=== PATIENT | male | born 1960 | race Caucasian/White ===

== ENCOUNTER 2021-10-06 18:30 | Emergency (ER) | payer BC, MEDICARE ==
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
[2021-10-06 20:09] VITALS: BP 181/99
[2021-10-06] MEDS ORDERED: TORAdol 30 mg Injection IM ONE (20:23)
[2021-10-06] MEDS ORDERED: Norflex 60 MG/2 ML IM ONE (20:24)
[2021-10-06] MEDS ORDERED: TORAdol 30 mg Injection ONE (20:47)
[2021-10-06] MEDS ORDERED: Norflex 60 MG/2 ML ONE (20:47)
[2021-10-06 21:09] VITALS: PULSE 70; O2SAT 96
--- NOTE | 2021-10-07 07:30 | XRAY ---
Indication: Head, neck, and left arm pain/numbness. Multiple contiguous axial images obtained through the head without contrast. Comparison: None Age-appropriate global atrophy. No acute intracranial hemorrhage, abnormal extra-axial fluid collection, or mass effect. Fourth ventricle is midline without hydrocephalus. Bony calvarium intact. Paranasal sinuses and mastoid air cells are clear. Impression: Negative CT head without contrast exam. Comment: Preliminary interpretation made by [facility]. No critical discrepancy.
--- NOTE | 2021-10-07 07:32 | XRAY ---
Indication: Head, neck, and left arm pain/numbness. Multiple contiguous axial images obtained through the cervical spine. Sagittal and coronal reformatted images obtained. Comparison: None Axial images negative for acute fracture, suspicious bone lesions, or spinal canal stenosis. Mild C5-C7 degenerative endplate spurring and mild multilevel bilateral degenerative facet hypertrophy left greater than right. Sagittal and coronal reformatted images demonstrates lordotic straightening, positional versus paraspinal spasm. C5-C7 disc space narrowing. No acute compression fracture, subluxation, or jump facet. Normal appearing craniocervical junction. Visualized noncontrasted soft tissues demonstrates minimal bilateral carotid calcifications. Lung apices are clear. Impression: 1. Cervical lordotic straightening, positional versus paraspinal spasm. 2. Negative acute fracture/subluxation. 3. Incidental C5-C7 degenerative changes. Comment: Preliminary interpretation made by C. No critical discrepancy.
== END 2021-10-06 21:00 | disposition home or self-care (01) ==
LOC: ED 18:30
DX: M50.30 Other cervical disc degeneration, unspecified cervical region (principal); R51.9 Headache, unspecified; E78.5 Hyperlipidemia, unspecified; I10 Essential (primary) hypertension; E11.9 Type 2 diabetes mellitus without complications; Z72.0 Tobacco use; Z79.84 Long term (current) use of oral hypoglycemic drugs; Z79.899 Other long term (current) drug therapy
CPT/HCPCS: 70450; 72125; 96372; 99284; J1885; J2360

== ENCOUNTER 2024-02-29 13:25 | Emergency (ER) | payer MEDICARE ==
[2024-02-29 13:40] VITALS: TEMP 97.7
--- NOTE | 2024-02-29 14:47 | ERPHSYRPT ---
- History of Present Illness Time Seen by Provider: 02/29/24 14:35 Historian: patient Patient Subjective Stated Complaint: "Tianna had a wierd kind of pain in my chest since yesterday" Triage Nursing Assessment: C/o "wierd" pain in center of chest since yesterday. H/o CABG 15 years ago. States some sweating on occastion. Pain worsens when moving. No N/V. No tx prior to coming here today. Increased sob with exertion. AAox3, Walked in. Brought here by a friend. Physician History: For the past 14.5 hours pt has had constant mid chest burning 6/10 in severity with right shoulder pain and diaphoresis; denies abdominal pain, nausea, vomiti ng, fever. Aspirin Treatment Today: 81 mg x 4, provided by ED Allergies/Adverse Reactions: No Known Drug Allergies Allergy (Unverified 10/06/21 18:38) Home Medications: Acetaminophen with Codeine [Tylenol with Codeine #4 Tablet] 1 each PO Q6H PRN PRN 10/18/16 [History] Alendronate Sodium 70 mg [Fosamax 70 MG] 70 mg PO WEEKLY 10/18/16 [History] Amlodipine Besylate 5 mg [Norvasc 5 mg] 5 mg PO DAILY 10/18/16 [History] Atorvastatin Calcium [Lipitor 40Mg] 40 mg PO HS 10/18/16 [History] Betamethasone/Propylene Glyc [Diprolene AF 0.05% Cream] 15 gm TP BID 10/18/16 [History] Buspirone HCl [Buspar] 10 mg PO BID 10/18/16 [History] Gabapentin [Neurontin] 800 mg PO TID 10/18/16 [History] Irbesartan/Hydrochlorothiazide [Avalide 150-12.5 mg Tablet] 1 each PO DAILY 10/18/16 [History] Liraglutide [Victoza 2-Tru] 1.2 mg SQ HS 10/18/16 [History] Metformin HCl [Glucophage] 1,000 mg PO BID 10/18/16 [History] Metoprolol Succinate 100 mg [Toprol Xl 100 MG] 100 mg PO DAILY 10/18/16 [History] Metoprolol Succinate 100 mg [Toprol Xl 100 MG] 100 mg PO DAILY 10/18/16 [History] Milnacipran HCl [Savella] 50 mg PO BID 10/18/16 [History] Multivitamin [Multivitamins] 1 each PO DAILY 10/18/16 [History] Nitroglycerin 0.4 mg (Ed) [Nitrostat 0.4 MG (ED)] 0.4 mg SL UD 10/18/16 [History] PANTOPRAZOLE 40 mg Tablet [Protonix 40MG Tablet] 1 tab PO DAILY 10/18/16 [History] Piroxicam [Feldene] 20 mg PO DAILY 10/18/16 [History] Quetiapine Fumarate [Seroquel] 100 mg PO DAILY 10/18/16 [History] Sertraline HCl [Zoloft] 100 mg PO BID 10/18/16 [History] raNITIdine HCl [Zantac] 300 mg PO DAILY 10/18/16 [History] Hx Tetanus, Diphtheria Vaccination/Date Given: Yes Hx Influenza Vaccination/Date Given: Yes Hx Pneumococcal Vaccination/Date Given: No Immunizations Up to Date: Yes Travel Risk - International Travel Have you traveled outside of the country in past 3 weeks: No - Review of Systems Constitutional: No Fever Cardiac: Chest Pain Abdominal/Gastrointestinal: No Nausea, No Vomiting Musculoskeletal: Joint Pain (right shoulder pain) Neurological: No Headache - Past Medical History Pertinent Past Medical History: Yes Neurological History: No Pertinent History ENT History: No Pertinent History Cardiac History: Coronary Artery Disease, High Cholesterol, Hypertension Respiratory History: Asthma Endocrine Medical History: Diabetes Type II Musculoskeletal History: Fibromyalgia, Osteoarthritis, Rheumatoid Arthritis GI Medical History: GERD History: No Pertinent History Psycho-Social History: Depression Male Reproductive Disorders: No Pertinent History Other Medical History: nerve damage, sciatica - Past Surgical History Past Surgical History: Yes Neuro Surgical History: No Pertinent History Cardiac: CABG Respiratory: No Pertinent History Gastrointestinal: No Pertinent History Genitourinary: No Pertinent History Musculoskeletal: Orthopedic Surgery Male Surgical History: No Pertinent History Other Surgical History: bilateral elbows, 2 back surgeries, R foot, L hand, L shoulder Significant Family History: no pertinent family hx - Social History Smoking Status: Current every day smoker How long have you smoked: Many Exposure to second hand smoke: Yes Drug Use: none Patient Lives Alone: Yes - Social Determinants of Health Will the patient participate in the screening: Yes Do you worry about a steady place to live?: No Do you have any problems with any of the following?: No known problems In the past 12 months,have you had to go without utilities?: No Transportation Issues: No Has anyone in your support network made you feel unsafe?: No Have you or anyone in your house had to go without enough: No - Nursing Vital Signs Nursing Vital Signs: Initial Vital Signs Temperature 97.7 F 02/29/24 13:28 Pulse Rate 64 02/29/24 13:28 Respiratory Rate 18 02/29/24 13:28 Blood Pressure 170/103 02/29/24 13:28 O2 Sat by Pulse Oximetry 96 02/29/24 13:28 Pain Scale Pain Intensity 0 - Physical Exam General Appearance: alert Eye Exam: eyes nml inspection Ears, Nose, Throat Exam: TMs normal, pharynx normal Neck Exam: normal inspection Respiratory Exam: lungs clear, airway intact Cardiovascular Exam: normal heart sounds Gastrointestinal/Abdomen Exam: normal bowel sounds Extremity Exam: No pedal edema Neurologic Exam: alert, cooperative Skin Exam: normal color, warm SpO2 Interpretation: normal SpO2: 96 O2 Delivery: Room Air - Course Nursing assessment & vital signs reviewed: Yes EKG Interpreted by Me: RATE (58), Sinus Ramiro, Right Bundle Branch Block, Other (QTc = 397) - Radiology Exams Chest X-ray Interpretation: Teleradiologist Report (No consolidation. Cardiomegaly. See rest of report.) Ordered Tests: Active Orders 24 hr Category Date Time Status Powder Operator STAT Care 02/29/24 14:45 Active EKG-ER Only STAT Care 02/29/24 14:45 Active EKG-ER Only STAT Care 02/29/24 20:08 Active IV Insertion STAT Care 02/29/24 14:45 Active CHEST 2 VIEWS (PA AND LAT) Stat Exams 02/29/24 14:46 Completed AMYLASE Stat Lab 02/29/24 14:30 Completed CBC W DIFF Stat Lab 02/29/24 14:30 Completed CMP Stat Lab 02/29/24 14:30 Completed D-DIMER QUANTITATIVE Stat Lab 02/29/24 14:30 Completed LIPASE Stat Lab 02/29/24 14:30 Completed MAGNESIUM Stat Lab 02/29/24 14:30 Completed TROPONIN Q4H Lab 02/29/24 14:30 Completed TROPONIN Q4H Lab 02/29/24 18:46 Completed TROPONIN Q4H Lab 02/29/24 22:45 Ordered Medication Summary Discontinued Medications Generic Name Dose Route Start Last Admin Trade Name Jeanette PRN Reason Stop Dose Admin Al Hydrox/Mg Hydrox/Simethicone Confirm 02/29/24 14:58 Mag Hydrox/Al Hydrox/Simeth 30 Ml Udcup Administered 02/29/24 14:59 Dose 30 ml .ROUTE .STK-MED ONE Aspirin 324 mg 02/29/24 14:45 02/29/24 15:00 Aspirin 81 Mg Tab.Chew PO 02/29/24 14:46 324 mg STAT ONE Administration Aspirin Confirm 02/29/24 14:58 Aspirin 81 Mg Tab.Chew Administered 02/29/24 14:59 Dose 324 mg .ROUTE .STK-MED ONE Lidocaine HCl Confirm 02/29/24 14:58 Lidocaine Hcl 2% Viscous 15 Ml Udcup Administered 02/29/24 14:59 Dose 15 ml .ROUTE .STK-MED ONE Magnesium Hydroxide 45 ml 02/29/24 14:44 02/29/24 15:00 Mag Hydrx/Alum Hyd/Simeth/Lido 45 Ml Bottle PO 02/29/24 14:45 45 ml STAT ONE Administration Nitroglycerin 0.4 mg 02/29/24 20:18 02/29/24 20:21 Nitroglycerin 0.4 Mg (Ed) 0.4 Mg Tab.Subl SL 02/29/24 20:19 0.4 mg STAT ONE Administration Nitroglycerin Confirm 02/29/24 20:21 Nitroglycerin 0.4 Mg (Ed) 0.4 Mg Tab.Subl Administered 02/29/24 20:22 Dose 0.4 mg SL .STK-MED ONE Lab/Rad Data: Laboratory Result Diagrams 02/29/24 14:30 02/29/24 14:30 Laboratory Results 02/29/24 02/29/24 02/29/24 Range/Units 18:46 14:30 14:30 WBC (4.23-9.07) x10^3/uL RBC (4.63-6.08) x10^6/uL Hgb (13.7-17.5) g/dL Hct (40.1-51.0) % MCV (79.0-92.2) fL MCH (25.7-32.2) pg MCHC (32.3-36.5) g/dL RDW (11.6-14.4) % Plt Count (163-337) x10^3/uL MPV (9.4-12.4) fL Gran % (34.0-67.9) % Immature Gran % (Auto) (0.001-0.429) % Nucleat RBC Rel Count (0.00-0.2) % Eos # (Auto) (0.04-0.54) x10^3/uL Immature Gran # (Auto) (0.001-0.031) x10^3u/L Absolute Lymphs (auto) (1.32-3.57) x10^3/uL Absolute Monos (auto) (0.30-0.82) x10^3/uL Absolute Nucleated RBC (0.00-0.012) x10^3u/L Lymphocytes % (21.8-53.1) % Monocytes % (5.3-12.2) % Eosinophils % (0.8-7.0) % Basophils % (0.2-1.2) % Absolute Granulocytes (1.78-5.38) x10^3/uL Basophils # (0.01-0.08) x10^3/uL D-Dimer 0.48 (0.0-0.50) mg/L Sodium 136 (135-145) mmol/L Potassium 4.1 (3.5-5.1) mmol/L Chloride 106 (98-107) mmol/L Carbon Dioxide 25 (22-30) mmol/L Anion Gap 8.7 (5-15) MEQ/L BUN 21 H (9-20) mg/dL Creatinine 0.92 (0.66-1.25) mg/dL Estimated GFR 93.5 ML/MIN Glucose 136 H (74-106) mg/dL Calcium 11.0 H (8.4-10.2) mg/dL Magnesium 2.2 (1.6-2.3) mg/dL Total Bilirubin 0.30 (0.2-1.3) mg/dL AST 38 (17-59) U/L ALT 42 (0-50) U/L Alkaline Phosphatase 121 (38-126) U/L Troponin I 0.099 H* 0.046 H* (0.000-0.033) ng/mL Serum Total Protein 6.3 (6.3-8.2) g/dL Albumin 3.7 (3.5-5.0) g/dL Amylase 48 (30-110) U/L Lipase 77 (23-300) U/L 12/15/24 Range/Units 14:30 WBC 7.1 (4.23-9.07) x10^3/uL RBC 5.12 (4.63-6.08) x10^6/uL Hgb 15.6 (13.7-17.5) g/dL Hct 46.9 (40.1-51.0) % MCV 91.6 (79.0-92.2) fL MCH 30.5 (25.7-32.2) pg MCHC 33.3 (32.3-36.5) g/dL RDW 13.1 (11.6-14.4) % Plt Count 255 (163-337) x10^3/uL MPV 11.1 (9.4-12.4) fL Gran % 56.2 (34.0-67.9) % Immature Gran % (Auto) 0.9 H (0.001-0.429) % Nucleat RBC Rel Count 0.0 (0.00-0.2) % Eos # (Auto) 0.40 (0.04-0.54) x10^3/uL Immature Gran # (Auto) 0.06 H (0.001-0.031) x10^3u/L Absolute Lymphs (auto) 1.89 (1.32-3.57) x10^3/uL Absolute Monos (auto) 0.66 (0.30-0.82) x10^3/uL Absolute Nucleated RBC 0.00 (0.00-0.012) x10^3u/L Lymphocytes % 26.8 (21.8-53.1) % Monocytes % 9.4 (5.3-12.2) % Eosinophils % 5.7 (0.8-7.0) % Basophils % 1.0 (0.2-1.2) % Absolute Granulocytes 3.97 (1.78-5.38) x10^3/uL Basophils # 0.07 (0.01-0.08) x10^3/uL D-Dimer (0.0-0.50) mg/L Sodium (135-145) mmol/L Potassium (3.5-5.1) mmol/L Chloride (98-107) mmol/L Carbon Dioxide (22-30) mmol/L Anion Gap (5-15) MEQ/L BUN (9-20) mg/dL Creatinine (0.66-1.25) mg/dL Estimated GFR ML/MIN Glucose (74-106) mg/dL Calcium (8.4-10.2) mg/dL Magnesium (1.6-2.3) mg/dL Total Bilirubin (0.2-1.3) mg/dL AST (17-59) U/L ALT (0-50) U/L Alkaline Phosphatase (38-126) U/L Troponin I (0.000-0.033) ng/mL Serum Total Protein (6.3-8.2) g/dL Albumin (3.5-5.0) g/dL Amylase (30-110) U/L Lipase (23-300) U/L - Progress Progress: unchanged Progress Note: 02/29/24 20:50 Repeat EKG: rate = 58; sinus bradycardia; RBBB; QTc = 410. Discussed with Dr.: Other (Spoke with Dr. Yanes([id number]) who accepted pt for transfer to [facility] as a direct admission.) Counseled pt/family regarding: lab results, diagnosis, rad results Medical Desision Making - Diagnostic Testing Diagnostic test were ordered, analyzed, and reviewed by me: Yes Radiological Interpretation: Teleradiologist Report - Departure Departure Disposition: Transfer ([facility]) Clinical Impression: Chest pain, Elevated troponin Condition: Stable Critical Care Time: No Referrals: DOCTOR,NO FAMILY [Primary Care Provider] - Follow up/PCP as directed
[2024-02-29 14:55] LABS: Absolute Neutrophil Ct (ANC) 3.97 x10^3/uL (1.78-5.38); Basophil (Absolute #) 0.07 x10^3/uL (0.01-0.08); Eosinophil % 5.7 % (0.8-7.0); Hematocrit 46.9 % (40.1-51.0); Hemoglobin 15.6 g/dL (13.7-17.5); IMMATURE GRAN # 0.06 x10^3u/L (0.001-0.031); IMMATURE GRAN % 0.9 % (0.001-0.429); Lymphocyte (Absolute #) 1.89 x10^3/uL (1.32-3.57); Lymphocytes % 26.8 % (21.8-53.1); Mean Cell Volume 91.6 fL (79.0-92.2); Mean Corpuscular Hemoglobin 30.5 pg (25.7-32.2); Mean Corpuscular Hgb Concent. 33.3 g/dL (32.3-36.5); Mean Platelet Volume 11.1 fL (9.4-12.4); Monocyte (Absolute #) 0.66 x10^3/uL (0.30-0.82); Monocytes % 9.4 % (5.3-12.2); Neutrophil % 56.2 % (34.0-67.9); Platelet Count 255 x10^3/uL (163-337); Red Blood Count 5.12 x10^6/uL (4.63-6.08); Red Cell Distribution Width 13.1 % (11.6-14.4); White Blood Count 7.1 x10^3/uL (4.23-9.07)
[2024-02-29] MEDS ORDERED: MAALOX ES 30 ML UNIT DOSE ONE (14:58)
[2024-02-29] MEDS ORDERED: BABY ASPIRIN 81 MG CHEW ONE (14:58)
[2024-02-29] MEDS ORDERED: XYLOCAINE VISCOUS 2% 15 ML CUP ONE (14:58)
[2024-02-29] MEDS: GI COCKTAIL 45 ML (Maalox/Lidocaine) PO ONE (15:00)
[2024-02-29] MEDS: BABY ASPIRIN 81 MG CHEW PO ONE (15:00)
[2024-02-29 15:14] LABS: ALBUMIN 3.7 g/dL (3.5-5.0); ANION GAP 8.7 MEQ/L (5-15); BILIRUBIN,TOTAL 0.3 mg/dL (0.2-1.3); Creatinine 1 0.92 mg/dL (0.66-1.25); EST GLOMERULAR FILTRATION RATE 93.5 ML/MIN; MAGNESIUM 2.2 mg/dL (1.6-2.3); Potassium 4.1 mmol/L (3.5-5.1); Total Protein 6.3 g/dL (6.3-8.2)
[2024-02-29 15:36] LABS: TROPONIN 0.046 ng/mL (0.000-0.033)
--- NOTE | 2024-02-29 16:55 | XRAY ---
CLINICAL HISTORY: chest pain COMPARISON: None. TECHNIQUE: CHEST 2 VIEWS (PA AND LAT) FINDINGS: Sternotomy wires Relative increased broncho vascular markings No focal opacities or consolidation Clear both costophrenic angles Normal mediastinum. The heart appeared mildly enlarged IMPRESSION: 1. No consolidation 2. Relatively prominent broncho vascular marking for clinical correlation 3. Cardiomegaly. Electronically Signed by: Vicky Gaitan MD. (02/29/2024 16:51:48 EST)
[2024-02-29] MEDS ORDERED: Nitrostat 0.4 MG (ED) SL ONE (20:21)
[2024-02-29] MEDS: Nitrostat 0.4 MG (ED) SL ONE (20:21)
[2024-03-01 00:07] LABS: Hematocrit 50.2 % (40.1-51.0); Hemoglobin 16.8 g/dL (13.7-17.5); Mean Cell Volume 91.1 fL (79.0-92.2); Mean Corpuscular Hemoglobin 30.5 pg (25.7-32.2); Mean Corpuscular Hgb Concent. 33.5 g/dL (32.3-36.5); Mean Platelet Volume 9.8 fL (9.4-12.4); Platelet Count 244 x10^3/uL (163-337); Red Blood Count 5.51 x10^6/uL (4.63-6.08); Red Cell Distribution Width 12.9 % (11.6-14.4); White Blood Count 7.6 x10^3/uL (4.23-9.07)
[2024-03-01 00:22] LABS: INR 1.05 (0.8-3.0); PROTIME 11.4 SECONDS (9.4-12.5); PTT 29.1 SECONDS (25.1-36.5)
[2024-03-01] MEDS ORDERED: HEPARIN 5000 UNITS/0.5 ML (HIGH RISK MED) ONE (00:25)
[2024-03-01] MEDS ORDERED: Heparin 25,000 units/D5W: USE ORDER SET PROTO 25,000 UNITS/250 ML BAG IV ONE (00:25)
[2024-03-01] MEDS: HEPARIN 5000 UNITS/0.5 ML (HIGH RISK MED) IV STA (00:26)
[2024-03-01] MEDS: Heparin 25,000 units/D5W: USE ORDER SET PROTO 25,000 UNITS/250 ML BAG IV SCH (00:26)
[2024-03-01 04:38] LABS: Hematocrit 49.5 % (40.1-51.0); Hemoglobin 16.5 g/dL (13.7-17.5); Mean Cell Volume 91.5 fL (79.0-92.2); Mean Corpuscular Hemoglobin 30.5 pg (25.7-32.2); Mean Corpuscular Hgb Concent. 33.3 g/dL (32.3-36.5); Mean Platelet Volume 9.9 fL (9.4-12.4); Platelet Count 237 x10^3/uL (163-337); Red Blood Count 5.41 x10^6/uL (4.63-6.08); Red Cell Distribution Width 13.1 % (11.6-14.4); White Blood Count 8.1 x10^3/uL (4.23-9.07)
[2024-03-01 10:12] VITALS: BP 159/108; PULSE 70; RESP 16; O2SAT 94
== END 2024-03-01 10:16 | disposition short-term general hospital (02) ==
LOC: ED 13:25
DX: R07.9 Chest pain, unspecified (principal); R79.89 Other specified abnormal findings of blood chemistry; F17.200 Nicotine dependence, unspecified, uncomplicated; Z95.0 Presence of cardiac pacemaker
CPT/HCPCS: 36415; 71046; 80053; 82150; 83690; 83735; 84484; 85025; 85027; 85379; 85610; 85730; 93005; 93041; 99285; J1644; A9270-GY